=== PATIENT | female | born 1995 | race Caucasian/White ===

== ENCOUNTER 2022-02-22 15:56 | Emergency (ER) | payer OTHER, SELFPAY ==
[2022-02-22 15:57] VITALS: BP 116/75; PULSE 108; RESP 16; TEMP 37.2; O2SAT 100; BMI 22.3
--- NOTE | 2022-02-22 16:31 | CT_ITS ---
We are attempting to reach an attending provider to discuss findings. An addendum with communication details will be sent when the communication is complete. STUDY: CT Abdomen And Pelvis W/ Contrast Injection 02/22/2022 6:37 PM REASON FOR EXAM: Female, 26 years old. Severe PAIN BACK PAIN TECHNIQUE: Transaxial images were obtained with oral contrast, and with Oral and amp; IV Gastrografin and amp; 100mL Isovue-370 intravenous contrast. Individualized dose optimization techniques were used for this CT. COMPARISON: None. FINDINGS: The visualized lung bases are unremarkable. The visualized portions of the heart are within normal limits. Unremarkable liver. There are surgical clips in the gallbladder fossa consistent with a prior cholecystectomy. Unremarkable spleen. Unremarkable pancreas. Unremarkable bilateral adrenal glands. There are [place] shaped areas of decreased perfusion and heterogeneity in the right kidney. This is consistent for pyelonephritis with possible developing pyogenic abscess. These measure up to 21 mm. No acute findings of the left kidney. Unremarkable visualized stomach. Unremarkable small intestine. Unremarkable colon. There is non-visualization of the appendix. There are no acute findings of the abdominal aorta. Unremarkable inferior vena cava. Subcentimeter mesenteric lymph nodes. Unremarkable urinary bladder. There is trace free fluid in the pelvis. This can be physiologic. The uterus is normal in appearance. There are physiologic follicles or cysts of both ovaries. Unremarkable abdominal wall. Unremarkable osseous structures. CT/Abdomen/Pelvis WITH Contrast IMPRESSION: (NOT LISTED IN ORDER OF SIGNIFICANCE) There are [place] shaped areas of decreased perfusion and heterogeneity in the right kidney. This is consistent for pyelonephritis with possible developing pyogenic abscess. These measure up to 21 mm. Critical finding called and case discussed. Other findings as above. Electronically Signed: Barry Van MD at 18:43 EST ,
--- NOTE | 2022-02-22 16:33 | EX.ED.DYSGE1 ---
HPI History of Present Illness Chief Complaint: General Illness Detail of Chief Complaint: Back pain Informant: patient Onset/Context/Timing Onset: Days (4 days) Context: Gradual Onset Current Severity: Moderate Maximum Severity: Moderate Narrative Narrative: Patient present secondary to low back pain that now radiates around into her abdomen. She states pain started on Tuesday, 3 days ago. No injury. No problems with her back previously. She states the pain started around her waistband area but is since now wrapped around her abdomen and up into her chest. She states her lungs hurt when she coughs but she does not have a cough. She is had some chills and a headache. No measured fever. She been taking Tylenol, ibuprofen, Naprosyn without improvement. She has no urinary symptoms. Last menstrual cycle was about 2 and half weeks ago. PFSH PFSH Medical History no medical history no medical history Home Medications ciprofloxacin HCl 500 mg tablet (Cipro) 500 mg PO BID #28 tabs 02/22/22 [Rx Last Taken Unknown] hydrocodone-acetaminophen 5-325mg 5mg-325mg 1 tab PO Q6H PRN pain 3 days #10 tabs 02/22/22 [Rx Last Taken Unknown] Allergy/AdvReac Type Severity Reaction Status Date / Time No Known Allergies Allergy Verified 02/22/22 15:59 Surgical History (Updated 02/22/22 @ 16:53 by Winnie Olivares) Hx of cholecystectomy Social History Smoking Status: Never smoker ROS ROS ED Constitutional Constitutional ED: Reports chills; Denies fever(s) Eyes Eyes: Denies change in vision or discharge from eye(s) ENT ENT ED: Denies discharge from eye(s), rhinorrhea or sore throat Cardiovascular Cardiovascular: Denies chest pain or palpitations Respiratory/Chest Respiratory/Chest: Denies cough or dyspnea Gastrointestinal Gastrointestinal: Reports abdominal pain; Denies diarrhea, nausea or vomiting Genitourinary Genitourinary ED: Denies difficulty urinating, dysuria or hematuria Musculoskeletal Musculoskeletal: Reports back pain, extremity pain and other Details: Intermittent aching pain in her knees bilaterally. Integumentary Denies Abrasions or rash Neurologic Neurologic: Reports headache(s); Denies weakness Allergic/Immunologic Allergic/Immunologic ED: Denies lip swelling or urticaria EXAM Physical Exam Const Vital Signs: 02/22/22 15:57 02/22/22 16:52 02/22/22 18:03 Temperature 98.9 F Temperature Source Temporal Pulse Rate 108 H Respiratory Rate 16 16 Respiratory Effort Normal Non-Labored Blood Pressure 116/75 Blood Pressure Mean 88 Pulse Ox 100 Oxygen Delivery Method Room Air Positive well nourished and well developed General Appearance ED: well developed HEENT Reports normocephalic and head/scalp atraumatic Eyes PERRL and EOMs intact bilaterally Neck supple Chest Wall inspection of chest normal and palpation of chest normal Resp normal respiratory effort and clear to auscultation bilaterally Cardio regular rate and regular rhythm GI non-tender Auscultation: hypoactive bowel sounds Palpation: soft Back/Spine Back/Spine Narrative: Tenderness in the mid low lumbar midline region as well as the bilateral paraspinals. No overlying skin change. Extremity normal to inspection Neuro oriented x3 and no sensory deficits noted Sensorium / Orientation: alert Motor Exam: strength 5/5 throughout Psych Mood & Affect: anxious and tearful Skin no rashes or lesions noted MDM MDM MDM Narrative Medical decision making narrative: Patient given morphine and Zofran for pain. Swabs for COVID and influenza obtained. Lab work, urinalysis, CT scan of the abdomen and pelvis obtained along with urinalysis. Lab Data Attestation: I reviewed the patient's lab results. Labs: Laboratory Results - last 24 hr 02/22/22 02/22/22 02/22/22 16:50 16:50 16:50 WBC 15.2 H RBC 4.66 Hgb 12.5 Hct 39.9 MCV 85.6 MCH 26.8 L MCHC 31.3 L RDW Std Deviation 42.4 RDW Coeff of Bharti 13.4 Plt Count 253 MPV 10.2 Immature Gran % (Auto) 0.400 Neut % (Auto) 75.4 H Lymph % (Auto) 9.3 L [place] % (Auto) 14.2 H Eos % (Auto) 0.3 Baso % (Auto) 0.4 Absolute Neuts (auto) 11.5 H Absolute Lymphs (auto) 1.41 Nucleated RBC % 0 Differential Comment SCANNED Diff Path Review May foll Sodium 137 Potassium 4.2 Chloride 106 Carbon Dioxide 29.0 Anion Gap 2 L BUN 9 Creatinine 0.87 Estim Creat Clear Calc 86.10 Est GFR (MDRD) Af Amer 102 Est GFR (MDRD) Non-Af 85 BUN/Creatinine Ratio 10.3 Glucose 117 H Calcium 9.2 Total Bilirubin 0.40 Direct Bilirubin 0.11 AST 12 L ALT 19 Alkaline Phosphatase 92 Total Protein 7.7 Albumin 3.2 Globulin 4.5 H Serum , Qual NEGATIVE Urine Color Urine Clarity Urine pH Ur Specific [place] Urine Protein Urine Glucose (UA) Urine Ketones Urine Occult Blood Urine Nitrite Urine Bilirubin Urine Urobilinogen Ur Leukocyte Esterase Urine RBC Urine WBC Ur Squamous Epith Cells Urine Bacteria Urine Mucus 02/22/22 17:30 WBC RBC Hgb Hct MCV MCH MCHC RDW Std Deviation RDW Coeff of Bharti Plt Count MPV Immature Gran % (Auto) Neut % (Auto) Lymph % (Auto) [place] % (Auto) Eos % (Auto) Baso % (Auto) Absolute Neuts (auto) Absolute Lymphs (auto) Nucleated RBC % Differential Comment Diff Path Review Sodium Potassium Chloride Carbon Dioxide Anion Gap BUN Creatinine Estim Creat Clear Calc Est GFR (MDRD) Af Amer Est GFR (MDRD) Non-Af BUN/Creatinine Ratio Glucose Calcium Total Bilirubin Direct Bilirubin AST ALT Alkaline Phosphatase Total Protein Albumin Globulin Serum , Qual Urine Color Yellow Urine Clarity Cloudy Urine pH 8.0 Ur Specific [place] 1.010 Urine Protein 30 H Urine Glucose (UA) Normal Urine Ketones Negative Urine Occult Blood 250 H Urine Nitrite Negative Urine Bilirubin Negative Urine Urobilinogen Normal Ur Leukocyte Esterase 100 H Urine RBC 50-100 SEEN Urine WBC 25-50 SEEN Ur Squamous Epith Cells 0-5 SEEN Urine Bacteria 1+ Urine Mucus 0 SEEN Radiography Diagnostic Testing: Clinical Impression(s) from Imaging Studies Abdomen/Pelvis CT 02/22/22 16:31 IMPRESSION: (NOT LISTED IN ORDER OF SIGNIFICANCE) There are [place] shaped areas of decreased perfusion and heterogeneity in the right kidney. This is consistent for pyelonephritis with possible developing pyogenic abscess. These measure up to 21 mm. Critical finding called and case discussed. Other findings as above. Electronically Signed: Barry Van MD at 18:43 EST , ADDENDUM: 02/22/22 1985 IMPRESSION: (NOT LISTED IN ORDER OF SIGNIFICANCE) There are [place] shaped areas of decreased perfusion and heterogeneity in the right kidney. This is consistent for pyelonephritis with possible developing pyogenic abscess. These measure up to 21 mm. Critical finding called and case discussed. Other findings as above. N.B. : The above Results were Read Back by Barry Van MD to Nai Emmanuel MD, and understanding confirmed on 02/22/2022 18:51:52 (ET). Electronically Signed: Barry Van MD at 18:43 EST , Treatment and Re-Evaluation Narrative: CBC was a white count of 15.2 with 75% neutrophils. Chemistry studies reveal normal renal function. LFTs are unremarkable. test is negative. Urinalysis does show 1+ bacteria with 25-50 white cells and 50-[address] RBCs. Nitrites are negative. CT scan of the abdomen and pelvis with contrast reveals circular shaped areas of decreased perfusion and heterogeneity in the right kidney consistent with pyelonephritis and possible developing pyogenic abscess. Patient had urine sent for culture and she is given a dose of IV Rocephin. I spoke with Dr. Lee. She states that if the patient does not look toxic, she is comfortable seeing the patient in the office within the next couple days. She would like the patient to be started on Cipro for the next 10 to 14 days. This was discussed with patient and she is comfortable with this plan. She does know that if she has persistent fever, worsened pain, or vomiting and cannot tolerate the medication she must return to the ER for IV antibiotics. Discharge Plan Triage Chief Complaint: General Illness ED Provider: Nai Emmanuel Dx/Rx/DC Orders Clinical Impression: Pyelonephritis Instructions: ED Pyelonephritis, Female (Adult) Prescriptions: New ciprofloxacin HCl [Cipro] 500 mg tablet 500 mg PO BID Qty: 28 0RF hydrocodone-acetaminophen 5-325 mg tablet 1 tab PO Q6H PRN (Reason: pain) 3 Days Qty: 10 0RF Primary Care Provider: Care Physician,No Primary Referrals: Dina Lee MD [Med Staff - Active Staff] - 2 Days NOT,DEFINED [Non-Staff] - Activity Restrictions/Additional Instructions: Please follow-up this week with Dr. Lee. Call the office tomorrow morning for an appointment. Return to the ER for worsened fever, pain, vomiting and inability to tolerate antibiotics. Disposition Disposition: Home, Self Care
[2022-02-22] MEDS: Morphine 4 MG/ML Syringe IV ×2 (16:46→20:25)
[2022-02-22] MEDS: Ondansetron 4 MG/2 ML Vial IV (16:46)
[2022-02-22 16:57] LABS: Absolute Lymphocyte Count 1.41 X10^3/uL (0.83-4.51); Absolute Neutrophil Count 11.5 X10^3/uL (2.0-7.7); Basophil# 0.06 X10^3/uL; Basophil% 0.4 % (0-1); Eosinophil# 0.05 X10^3/uL; Eosinophils% 0.3 % (0-5); Hematocrit 39.9 % (37-47); Hemoglobin 12.5 g/dL (12.0-15.0); Lymphocyte # 1.41 X10^3/ul (0.83-4.51); Lymphocyte % 9.3 % (19-41); Mean Corp Hgb Conc 31.3 g/dL (32-36); Mean Corpuscular Hgb 26.8 pg (27.0-32.0); Mean Corpuscular Volume 85.6 fL (81-99); Mean Platelet Vol. 10.2 fl (6.2-12.0); Monocyte# 2.17 X10^3/uL; Monocyte% 14.2 % (0-10); NRBC Flagged by Analyzer 0 % (0-5); Neutrophil # 11.48 X10^3/uL (2.7-7.7); Neutrophil % 75.4 % (47-70); POSITIVE DIFFERENTIAL YES; Platelet Count 253 K/mm3 (150-450); RBC Distribution Width CV 13.4 % (11.6-14.6); RBC Distribution Width SD 42.4 fl (35.1-43.9); Red Blood Count 4.66 M/mm3 (4.2-5.4); White Blood Count 15.2 K/mm3 (4.4-11.0)
[2022-02-22 17:01] LABS: Differential Indicated SCAN CRITERIA MET
[2022-02-22 17:21] LABS: Internal QC Validated? YES +Cl - CLEAR BKGD; Pregnancy, Serum, hCG Quali. NEGATIVE Negative
[2022-02-22 17:29] LABS: AST(SGOT) 12 U/L (15-37); Alanine Aminotransfer ALT/SGPT 19 U/L (13-56); Albumin, Serum 3.2 g/dL (3.2-5.0); Alkaline Phosphatase 92 U/L (45-117); Anion Gap 2 (5-15); BUN 9 mg/dL (7-18); BUN/Creat Ratio 10.3 RATIO (10-20); Bilirubin, Direct 0.11 mg/dL (0.00-0.30); Calcium,Total 9.2 mg/dL (8.5-10.1); Chloride 106 mmol/L (98-107); Creatinine, Serum 0.87 mg/dL (0.55-1.02); EST Glomerular Filtration Rate 85 mL/min (>60); Est Glom Filt Rate - Afr Amer 102 mL/min (>60); Globulin 4.5 g/dL (2.2-4.2); Glucose 117 mg/dL (74-106); Potassium 4.2 mmol/L (3.5-5.1); Protein, Total 7.7 g/dL (6.4-8.2); Sodium Level 137 mmol/L (136-145)
[2022-02-22] MEDS: 0.9% Normal Saline 1,000 ML 150 ML IV (17:40)
[2022-02-22 17:43] LABS: Differential Comment SCANNED
[2022-02-22 17:44] LABS: Mucous, Urine 0 SEEN /hpf (<or=2+)
[2022-02-22 17:48] LABS: Color, Urine Yellow (Yellow); Glucose, Dipstick Normal (Normal); Ketone-Dipstick Negative (Negative); Leukocyte Esterase-Dipstick 100 /ul (Negative); Nitrite-Dipstick Negative (Negative); Occult Blood-Urine 250 /ul (Negative); Protein-Dipstick 30 mg/dl (Negative); Urine Bilirubin Dipstick Negative (Negative); Urine Clarity Cloudy (Clear); Urine Urobilinogen Normal (Normal)
[2022-02-22 17:59] LABS: Red Blood Cells-Urine 50-100 SEEN /hpf (0-5); White Blood Cells 25-50 SEEN /hpf (0-5)
[2022-02-22 18:01] LABS: Bacteria 1+ /hpf (None Seen); Squamous Epithelial Cells - UA 0-5 SEEN /hpf (5-10)
[2022-02-22 18:03] VITALS: RESP 16
[2022-02-22] MEDS: Ceftriaxone 1 GM/50 ML BAG IV (19:41)
[2022-02-22 20:32] VITALS: BP 106/67; PULSE 83; RESP 18; O2SAT 97
[2022-02-22 21:00] VITALS: BP 106/67; PULSE 83; RESP 16; O2SAT 97
[2022-02-24 09:39] LABS: Pathologist Review Reviewed
== END 2022-02-22 21:00 | disposition home or self-care (01) ==
PROVIDERS: Emergency Provider Emergency Medicine; Visit Provider Emergency Medicine
DX: N12 Tubulo-interstitial nephritis, not specified as acute or chronic (principal)
CPT/HCPCS: 74177; 80048; 80076; 81001; 84703; 85025; 87086; 87088; 87186; 87428; 96365; 96375; 96376; 99283; J7030; J7050; Q9967; A4216; J2405

== ENCOUNTER 2024-03-19 17:48 | Emergency (ER) | payer MEDICAID, SELFPAY ==
[2024-03-19 17:50] VITALS: BP 133/68; PULSE 88; RESP 16; TEMP 36.6; O2SAT 98; BMI 26.9
== END 2024-03-19 20:52 | disposition left against medical advice (07) ==
LOC: ED 21:33
DX: Z53.21 Procedure and treatment not carried out due to patient leaving prior to being seen by health care provider (principal)

== ENCOUNTER 2024-03-20 00:46 | Emergency (ER) | payer MEDICAID, SELFPAY ==
[2024-03-20 00:47] VITALS: BP 132/96; PULSE 76; RESP 14; TEMP 36.6; O2SAT 97; BMI 24.7
--- NOTE | 2024-03-20 01:42 | CT_ITS ---
INDICATION: headache EXAMINATION: CT BRAIN - CT Head or Brain W/O Contrast Injection TECHNIQUE: Multiple axial images were obtained of the head without intravenous contrast. The protocol utilizes one or more of the following dose reduction techniques: automated exposure control, adjustment of mA and/or kV according to patient size,and/or use of iterative reconstruction technique. IV Contrast dosage and agent: None. RADIATION DOSAGE (If Supplied By Facility): CTDIvol = ( 44.99 ) mGy, DLP = ( 812.98 ) mGycm COMPARISON: No relevant prior comparison study available FINDINGS: BRAIN: No acute bleed. No edema. Dave-white matter differentiation is maintained. VENTRICLES AND SULCI: Not dilated. EXTRA-AXIAL: No hemorrhage, fluid collection, or mass. CALVARIUM / SKULL BASE: Unremarkable. FACE/SINUSES: Unremarkable. SOFT TISSUES: Unremarkable. CT/Brain/Head without Contrast IMPRESSION: No acute abnormality. Electronically Signed: Carmita Calderon MD at 3:46 EST ,
[2024-03-20] MEDS: 0.9% Normal Saline (1000mL) 1,000 ML 999 ML IV (01:56)
[2024-03-20] MEDS: DiphenhydrAMINE 50 MG/ML Syringe IV (01:57)
[2024-03-20] MEDS: Metoclopramide 10 MG/2 ML Vial IV (01:58)
[2024-03-20] MEDS: Ketorolac 30 MG/ML Syringe IV (02:00)
[2024-03-20 02:47] VITALS: BP 131/85; PULSE 64; RESP 16; O2SAT 98
--- NOTE | 2024-03-20 03:30 | EDS_ITS ---
HPI History of Present Illness Chief Complaint: Headache Informant: patient Narrative Narrative: Patient is a 28-year-old female with no significant past medical history. She states that over the last 3 days she has had a headache. She reports the headache came on gradually and increased over the course of hours. She reports it is sensitive to light and sound. She denies any sick symptoms prior to the headache beginning and she denies any trauma. She does state there is remote history of brain cancer in her grandparents and with the persistent headache this concerned her and therefore she presents for evaluation [facility] Home Medications ?Medication ?Instructions ?Recorded ?Last Taken ?Type hydrocodone-acetaminophen 5-325mg 1 tab PO Q6H PRN pain 3 days #10 02/22/22 Unknown Rx 5mg-325mg tabs norethindrone 1 mg-ethinyl 1 tab PO DAILY 03/20/24 Unknown History estradiol 20 mcg (21)-iron 75 mg (7) tablet ([place] Fe 03/12 ()) Allergy/AdvReac Type Severity Reaction Status Date / Time No Known Allergies Allergy Verified 03/19/24 17:49 Family History no significant family his Surgical History Hx of cholecystectomy Social History Smoking Status: Never smoker ROS ROS ED Constitutional Constitutional ED: Denies chills or fever(s) Eyes Eyes: Reports other Details: Positive photophobia ; Denies change in vision ENT ENT ED: Denies ear pain, rhinorrhea or sore throat Cardiovascular Cardiovascular: Denies chest pain Respiratory/Chest Respiratory/Chest: Denies cough or dyspnea Gastrointestinal Gastrointestinal: Denies abdominal pain, diarrhea, nausea or vomiting Genitourinary Genitourinary ED: Denies dysuria Musculoskeletal Musculoskeletal: Denies neck pain Integumentary Denies rash Neurologic Neurologic: Reports headache(s); Denies paresthesias or weakness Hematologic/Lymphatic Hematologic/Lymphatic: Denies easy bleeding or easy bruising EXAM Physical Exam Const Vital Signs: 03/20/24 00:47 03/20/24 02:47 03/20/24 03:33 Temperature 98 F 98 F Temperature Source Oral Pulse Rate 76 64 69 Respiratory Rate 14 16 18 Blood Pressure 132/96 H 131/85 H 117/83 H Blood Pressure Mean 108 100 94 Pulse Ox 97 98 96 Oxygen Delivery Method Room Air Room Air Positive well nourished and well developed General Appearance ED: well developed; Negative for pallor HEENT Reports TM's clear and moist mucous membranes HEENT Narrative: Normocephalic atraumatic No signs of infection noted in the posterior pharynx Tympanic Membrane ED: Yes TM's clear Eyes PERRL and EOMs intact bilaterally General Eye ED: Negative for scleral icterus Neck supple Neck Narrative: No nuchal rigidity or meningeal signs noted Resp normal respiratory effort and clear to auscultation bilaterally Cardio regular rate and regular rhythm GI normal to inspection, nondistended, normoactive bowel sounds, non-tender, non- distended and no masses Auscultation: normoactive bowel sounds Palpation: soft Extremity normal to inspection Neuro oriented x3, CN's II-XII intact bilaterally and no sensory deficits noted Neuro Narrative: GCS of 15 Cranial nerves II through XII are grossly intact without focal neurologic deficit No pronator drift no dysmetria no truncal ataxia NIH stroke scale score of 0 Sensorium / Orientation: alert Motor Exam: strength 5/5 throughout Psych mental status grossly normal Skin no rashes or lesions noted and no wounds General Skin Exam: Negative for jaundice or pallor MDM MDM MDM Narrative Medical decision making narrative: Patient arrived to the ER with stable vitals and a normal neurologic exam. She reported headache that came on gradually and increased over the course of hours. This is most consistent with migraine headache. However as there is a family history of brain cancer there is concern that her headache could be related to new onset tumor formation. There is also potential for infectious process such as sinusitis or a spontaneous subarachnoid or subdural hemorrhage. Therefore a noncontrast head CT was obtained and she was given IV fluids Toradol Benadryl and Reglan. Head CT revealed no acute findings and after medication the patient a resolution of her headache. Her neurologic exam remained normal as well. Therefore at this time with resolution of symptoms a persistently normal neurologic exam and head CT showing no signs of bleed or mass I do not feel there is need for further evaluation and she is otherwise safe for discharge. History & Record Review Discussion w/independent historian: Patient Radiography Diagnostic Testing: Clinical Impression(s) from Imaging Studies Brain CT 03/20/24 01:42 IMPRESSION: No acute abnormality. Electronically Signed: Carmita Calderon MD at 3:46 EST Reading Location ID and State: [facility] / [place] Tel , Service support , Discharge Plan Triage Chief Complaint: Headache ED Provider: Ke Suarez Dx/Rx/DC Orders Clinical Impression: Cephalgia Instructions: ED Headache Unspecified Prescriptions: No Action hydrocodone-acetaminophen 5-325 mg tablet 1 tab PO Q6H PRN (Reason: pain) 3 Days Qty: 10 0RF norethindrone-e.estradiol-iron [[place] Fe 03/12 (28)] 1 mg-20 mcg (21)/75 mg (7) tablet 1 tab PO DAILY Primary Care Provider: Kennedy Lin Referrals: Kennedy Lin DO [Primary Care Provider] - Activity Restrictions/Additional Instructions: Please follow-up with your family doctor for repeat evaluation and to discuss possible referral to a neurologist if headaches persist. Return to the ER should you have any further concerns or worsening in symptoms Print Language: Kazakh Disposition Disposition: Home, Self Care Discharge Date/Time: 03/20/24 03:36
[2024-03-20 03:33] VITALS: BP 117/83; PULSE 69; RESP 18; TEMP 36.6; O2SAT 96
== END 2024-03-20 03:36 | disposition home or self-care (01) ==
PROVIDERS: Emergency Provider Emergency Medicine; PCP Hospitalist; Visit Provider Emergency Medicine
DX: R51.9 Headache, unspecified (principal)
CPT/HCPCS: 70450; 96361; 96374; 96375; 99284